=== PATIENT | male | born 1980 | race Caucasian/White ===

== ENCOUNTER 2018-02-15 07:30 | Inpatient (IN) | payer OTHER ==
[~2018-02-15] VITALS: Ht 185.4 cm; Wt 72.6 kg
[2018-03-15] MEDS ORDERED: NORCO 10-325 T1 EACH ORAL (15:37)
[2018-03-16] VITALS (16 sets, daily range): BP systolic 134–159; BP diastolic 48–103
[2018-03-16] MEDS ORDERED: LR 1000ml 1,000 ML IVLG SCH (06:06)
--- NOTE | 2018-03-16 06:08 | Anethesia Preoperative Eval ---
Anesthesia Pre-op PMH/ROS General Date of Evaluation: Mar 16, 2018 Time of Evaluation: 07:36 Anesthesiologist: José Miguel ASA Score: ASA 2 Mallampati Score Class I : Soft palate, uvula, fauces, pillars visible Class II: Soft palate, uvula, fauces visible Class III: Soft palate, base of uvula visible Class IV: Only hard plate visible Mallampati Classification: Class I Surgeon: Andreia Diagnosis: Neck Pain Surgical Procedure: ACDF C5-6 Anesthesia History: none Family History: no anesthesia problems Allergies: Coded Allergies: No Known Allergies (Unverified , 03/07/18) Medications: see eMAR Patient NPO?: Yes Past Medical History Cardiovascular: Reports: HTN Gastrointestinal/Genitourinary: Reports: GERD Neurologic/Psychiatric: Reports: depression/anxiety PSxH Narrative: L ACL, R Ankle Sx Anesthesia Pre-op Phys. Exam Physician Exam Vital Signs Date Time Temp Pulse Resp B/P (MAP) Pulse Ox O2 Delivery O2 Flow Rate FiO2 03/16/18 06:25 98.2 71 18 135/91 (106) 96 03/16/18 06:40 Room Air Constitutional: NAD Neurologic: CN 2-12 intact Cardiovascular: RRR Respiratory: CTA Gastrointestinal: S/NT/ND Airway Exam Mallampati Score: Class I MO: full ROM: limited Teeth: intact, broken Anesthesia Pre-op A/P Risk Assessment & Plan Assessment: ASA 2 Plan: GA, SED, GlideScope Go Status Change Before Surgery: No Pre-Antibiotics Dru Grams Ancef IV Given Within 1 Hr of Incision: Yes Time Given: 07:56 Carlos Felipe MD Mar 16, 2018 06:08
[2018-03-16] MEDS ORDERED: Midazolam 2mg/2ml Inj IVP PRN (06:15)
[2018-03-16] MEDS ORDERED: Meperidine 50mg/ml Inj(FOR RIGORS ONLY) IVP PRN (06:15)
[2018-03-16] MEDS ORDERED: fentaNYL 100 mcg/2 mL IV PRN (06:15)
[2018-03-16] MEDS ORDERED: Metoclopramide 10mg/2ml Inj IVP PRN (06:15)
[2018-03-16] MEDS ORDERED: Atropine Sulfate 0.4mg/ml inj IVP PRN (06:15)
[2018-03-16] MEDS ORDERED: Hydromorphone 0.5mg/0.5ml inj IVP PRN (06:15)
[2018-03-16] MEDS ORDERED: DiphenhydrAMINE 50mg/ml Inj IVP PRN (06:15)
[2018-03-16] MEDS ORDERED: Acetaminophen (Non formulary) 100 ML IV ONE (06:15)
[2018-03-16] MEDS ORDERED: Norco 5mg/325mg tab ORAL PRN ×2 (06:15→10:30)
[2018-03-16] MEDS ORDERED: oxyCODONE HCL/Acetaminophen 5/325mg ORAL PRN (06:15)
[2018-03-16] MEDS ORDERED: HYDROcodone/Acetamin 7.5/325 tab ORAL PRN ×2 (06:15→10:30)
[2018-03-16] MEDS ORDERED: Ketorolac 30mg Inj IV PRN ×2 (06:15)
[2018-03-16] MEDS ORDERED: LORazepam Inj 2mg/ml 1ml IV PRN (06:15)
[2018-03-16] MEDS ORDERED: Lidocaine 1% Plain 30 ml INJ ONE ×2 (06:32→09:20)
[2018-03-16] MEDS ORDERED: Lidocaine 1% MPF 10mg/ml 5ml ONE (06:33)
[2018-03-16] MEDS ORDERED: Dexamethasone 4mg/ml vial ONE (06:33)
[2018-03-16] MEDS ORDERED: Sodium Chloride 10ml vial INJ ONE (06:33)
[2018-03-16] MEDS ORDERED: fentaNYL 100 mcg/2 mL IV ONE ×2 (06:41→08:27)
--- NOTE | 2018-03-16 06:58 | Immediate Post-Op Evaluation ---
Immediate Post-Op Evalulation Immediate Post-Op Evalulation Procedure: ACDF C5-6 Date of Evaluation: Mar 16, 2018 Time of Evaluation: 10:39 IV Fluids: 800 LR Blood Products: 0 Estimated Blood Loss: 15 Urinary Output: 0 Blood Pressure Systolic: 159 Blood Pressure Diastolic: 97 Pulse Rate: 86 Respiratory Rate: 16 O2 Sat by Pulse Oximetry: 100 Pain Score (1-10): 2 Nausea: No Vomiting: No Complications 0 Patient Status: awake, reacts, patent, extubated, none Hydration Status: adequate Dru grams ancef IV Given Within 1 Hr of Incision: Yes Time Given: 07:56 Carlos Felipe MD Mar 16, 2018 06:58
[2018-03-16] MEDS ORDERED: ceFAZolin sod 2 GM in D5W 110 ML IVPB ONE (07:00)
[2018-03-16] MEDS ORDERED: Heparin 1000 units/ml 1ml Vial ONE (07:17)
[2018-03-16] MEDS ORDERED: Thrombin 5000 units spray kit TOPIC ONE (07:17)
[2018-03-16] MEDS ORDERED: Vancomycin 1gm inj IVPB ONE (07:17)
[2018-03-16] MEDS ORDERED: Bacitracin 50000 Units Vial ONE (07:18)
[2018-03-16] MEDS ORDERED: Bupivacaine w/Epi 0.5% 30ml Vial INJ ONE (07:18)
[2018-03-16] MEDS ORDERED: Thrombin 5000 units TOPIC ONE (07:18)
[2018-03-16] MEDS ORDERED: Gelfoam Size TOPIC ONE (07:18)
[2018-03-16] MEDS ORDERED: Propofol 1,000mg/ 100ml btl IV ONE (07:30)
[2018-03-16] MEDS ORDERED: Sterile Water Irrig 1000ml IRRIG ONE (07:30)
[2018-03-16] MEDS ORDERED: NS Irrig 1000ml ONE (07:30)
--- NOTE | 2018-03-16 07:35 | Pre-Procedure Note/Attestation ---
Pre-Procedure Note/Attestation Complete Prior to Procedure Procedure Narrative: acdf c56 with bone marrow aspiration iliac Indications for Procedure Pre-Operative Diagnosis: cervical radiculopathy Attestation I attest that I discussed the nature of the procedure; its benefits; risks and complications; and alternatives (and the risks and benefits of such alternatives ), prior to the procedure, with the patient (or the patient's legal b2b sales representative). I attest that, if there was a reasonable possibility of needing a blood transfusion, the patient (or the patient's legal b2b sales representative) was given the [facility] standardized written summary, pursuant to the Félix Maritza Blood Safety Act ([place] Health and Safety Code # 1645, as amended). I attest that I re-evaluated the patient just prior to the surgery and that there has been no change in the patient's H&P, except as documented below: Eliel Boswell MD Mar 16, 2018 07:35
[2018-03-16] MEDS ORDERED: Glycopyrrolate 0.2mg/ml 1ml Vial ONE (09:53)
[2018-03-16] MEDS ORDERED: Naloxone 0.4mg/ml Inj ONE (10:01)
[2018-03-16] MEDS ORDERED: Naloxone 0.4mg/ml Inj IVP PRN (10:30)
[2018-03-16] MEDS ORDERED: HYDROmorphone 1mg/ml Carpuject IVP PRN (10:30)
[2018-03-16] MEDS ORDERED: HYDROmorphone 1mg/ml Carpuject SUBQ PRN (10:30)
--- NOTE | 2018-03-16 10:41 | Brief Operative Note ---
Immediate Post Operative Note Operative Note Pre-op Diagnosis: cervical radiculopathy Procedure: acdf c56 with bmac Post-op Diagnosis: same as pre-op Findings: consistent w/pre-op dx studies Surgeon: Andreia Dry End Tester: Estrella Anesthesiologist: Teodoro Anesthesia: general Specimen: yes Complications: none Condition: stable Fluids: 1000cc Estimated Blood Loss: minimal - 15cc Drains: none Implant(s) used?: Yes Eliel Boswell MD Mar 16, 2018 10:41
--- NOTE | 2018-03-16 10:59 | Diagnostic Imaging Report ---
INDICATION: Pain, intraoperative TECHNIQUE: Intraoperative imaging Fluoroscopy time: 9.2 seconds Total dose: 0.45 mGy Total number of images: 3 COMPARISON: None FINDINGS: Intraoperative images demonstrate surgical tool projected anterior to the C5-6 disc. Subsequent images document placement of anterior fusion hardware and a disc spacer at C5-6. This appears well aligned. IMPRESSION: Intraoperative imaging, as described
[2018-03-16] MEDS: D5 1/2NS 1,000 ML IV SCH ×2 (13:47→23:12)
[2018-03-16] MEDS ORDERED: ceFAZolin sod 1 GM in D5W 55 ML IV SCH (14:00)
[2018-03-16] MEDS: ceFAZolin sod 1 GM in D5W 55 ML IV SCH ×2 (16:22→23:06)
--- NOTE | 2018-03-16 18:47 | 48 Hour Post Anesthesia Eval ---
Post Anesthesia Evaluation Procedure: ACDF C5-6 Date of Evaluation: Mar 16, 2018 Time of Evaluation: 18:46 Blood Pressure Systolic: 134 0: 93 Pulse Rate: 98 Respiratory Rate: 19 Temperature (Fahrenheit): 98.1 O2 Sat by Pulse Oximetry: 98 Airway: patent Nausea: No Vomiting: No Pain Intensity: 3 Hydration Status: adequate Cardiopulmonary Status: Stable Follow-up Care/Observations: 0 Post-Anesthesia Complications: 0 Follow-up care needed: ready to discharge Carlos Felipe MD Mar 16, 2018 18:47
[2018-03-16] MEDS: HYDROcodone/Acetamin 7.5/325 tab ORAL PRN (18:55)
[2018-03-17] VITALS: BP 138/93
[2018-03-17 04:00] VITALS: BP 128/81
[2018-03-17] MEDS: ceFAZolin sod 1 GM in D5W 55 ML IV SCH (07:58)
[2018-03-17] MEDS: HYDROcodone/Acetamin 7.5/325 tab ORAL PRN ×4 (07:58→21:01)
[2018-03-17] MEDS: D5 1/2NS 1,000 ML IV SCH ×2 (07:58→17:05)
[2018-03-17 08:00] VITALS: BP 139/85
[2018-03-17 12:00] VITALS: BP 131/80
[2018-03-17 16:00] VITALS: BP 140/89
--- NOTE | 2018-03-17 18:10 | General Progress Note ---
Subjective Allergies: Coded Allergies: No Known Allergies (Unverified , 03/07/18) Subjective min neck pain and no arm pain avss a and o times [address] dressing cdi 5/5 motor in the ue and the le calves soft and nt cr less than 2 seconds doing well post op oob pt c collar dc tomorrow follow up in 7 to 10 days Objective Last 24 Hour Vital Signs Date Time Temp Pulse Resp B/P (MAP) Pulse Ox O2 Delivery O2 Flow Rate FiO2 03/17/18 16:00 98.4 71 18 140/89 (106) 94 03/17/18 12:00 98.3 77 18 131/80 (97) 95 03/17/18 09:00 Room Air Room Air 03/17/18 08:00 97.5 80 18 139/85 (103) 94 03/17/18 04:00 98.4 73 18 128/81 (97) 94 03/17/18 00:00 98.4 98 17 138/93 (108) 98 03/16/18 21:00 Room Air Room Air 03/16/18 20:00 97.8 82 19 140/85 (103) 98 03/16/18 18:47 98 19 98 Intake and Output 03/16/18 03/17/18 18:59 06:59 Intake Total 1455 ml 1200 ml Output Total 815 ml Balance 640 ml 1200 ml IV Total 1455 ml 1200 ml Output Urine Total 800 ml Estimated Blood Loss 15 ml # Voids 2 Height (Feet): 6 Height (Inches): 1.00 Weight (Pounds): 160 Eliel Boswell MD Mar 17, 2018 18:10
[2018-03-17] MEDS: Docusate 100mg cap ORAL SCH (18:11)
[2018-03-17 20:00] VITALS: BP 133/93
--- NOTE | 2018-03-17 21:45 | Operative Note - Dictated ---
DATE OF OPERATION: 03/16/2018 PREOPERATIVE DIAGNOSIS: C5-C6 disk protrusion with left upper extremity radiculopathy and stenosis. POSTOPERATIVE DIAGNOSIS: C5-C6 disk protrusion with left upper extremity radiculopathy and stenosis. PROCEDURE PERFORMED: 1. Interbody fusion with decompression at C5-C6. 2. Anterior instrumentation at C5-C6. 3. Insertion of biomechanical device at C5-C6. 4. Use of allograft and local autograft for fusion. 5. Right iliac bone marrow aspiration. SURGEON: Eliel Boswell M.D. RETAIL SALES MERCHANDISER: Adam De La Rosa M.D. ANESTHESIA: General endotracheal anesthesia disk C5-C6. ANESTHESIOLOGIST: Carlos Felipe M.D. ESTIMATED BLOOD LOSS: 15 mL. COMPLICATIONS: None. IV ANTIBIOTICS: 2 g of Ancef. FLUIDS: 1000 mL of crystalloid. INDICATIONS: This is a pleasant gentleman who failed nonoperative treatment and options for above treatment was given. Risks, alternatives, and benefits were discussed with the patient. Risks include, but are not limited to, anesthesia complications including , medical complications including liver, kidney, cardiopulmonary deficits, bleeding, infection, neurovascular injury, dysphonia, dysphagia, hematoma of the neck, nerve root injury, paralysis, spinal cord injury, CSF leak, dural tear, fracture of the hardware, loosening of the hardware, need for revision, decompression and fusion, swallowing difficulties, esophageal injury, tracheal injury, recurrent laryngeal nerve injury as well as other complications. The patient understood and wished to proceed. All the patient's questions were answered. Written and verbal consent was given. No guarantees were given. OPERATIVE FINDINGS: Herniated nucleus pulposus at C5-C6 with abutment of the spinal cord and left-sided disk protrusion, intraforaminal with osteophyte causing impingement of the exiting left C6 nerve root. DESCRIPTION OF OPERATION: The patient was brought into the operating room supine on a stretcher. Appropriate IV lines were placed by the anesthesiologist. A 2 g of Ancef was administered. The patient was induced and intubated without complication, was positioned onto the operating room table. The neck was placed into neutral alignment. The arms were tucked by the side. All bony prominences were well padded as well as the four extremities. SSEP, neuromonitoring leads were placed and baseline recordings were done by the Neurophysiology emergency medical technician. SSEP, EMG, and dermatomal EMG remained stable throughout the case. Preoperative fluoroscopy revealed the planned incision to be over the C5-C6 interbody space. Fluoroscopy revealed the neck to be in adequate alignment. The neck was prepped and draped in the usual sterile fashion and a proximal incision was made over C5-C6. Hemostasis was achieved with bipolar cautery. The platysma was incised in line with the skin incision. Blunt dissection was carried out in the interval between the strap muscles and the sternocleidomastoid. Superficial cervical fascia was dissected caudally as well as cephalad. The carotid pulse was palpated and found to be well lateral to the field of dissection. Deep cervical fascia was encountered. Once the cervical fascia was found, blunt dissection was carried out with Kittners as well as finger dissection to find the prevertebral space. The longus colli was found on both sides of the spine and was dissected appropriately. Retractors were set in place. Spinal needle was used to identify the disk space and lateral fluoroscopy revealed the C5-C6 disk space correctly. Retractors were set into place. The surgery was done with the intraoperatively sterilely draped microscope from skin incision to skin closure to include microdissection of the neural elements. At this point, attention was diverted to doing the diskectomy with a scalpel as well as pituitary rongeurs, straight and curved curettes and #1, #2, and #3 Kerrison punches, a radical diskectomy at C5-C6 was accomplished. Endplate bone was preserved. Endplate cartilage was removed. The uncovertebrectomy was done on the left and the right side to the level of the posterior longitudinal ligament. There was a large disk herniation, central and left paracentral with spinal cord abutment and significant compression of the exiting left C6 nerve root with osteophyte. A Microsect #2 curette was used to remove the PLL and all disk herniation and revealed a complete decompression of the spinal canal, central spinal canal, lateral recess, and the foramina was assured. At this point, attention was diverted to investigate any further disk space. There was no other disk fragment. A Valsalva was done at 40 mmHg. There was no CSF leak. All sponge, needle, and instrument counts were correct at this point, and now attention was diverted for the interbody biomechanical device. Before the incision in the neck, the right hip was also prepped and draped in usual sterile fashion including with the neck, a Jamshidi previously was placed into the iliac bone and a 30 mL of bone marrow was aspirated in three different locations from the iliac bone and was sent off for concentration for stem cells. This material was sterilely saved and at this point, it was ready for implantation into the interbody biomechanical device. Different trials from the Fingerprint system were used and a 16.5 x 14 mm 7-degree lordotic, 7 mm in height Titanium biomechanical device was chosen, was packed with local autograft, which was saved from shavings from C5 and C6, the [place] allograft and bone marrow aspirate concentrate and placed into the biomechanical device. The biomechanical device was tamped into place at C5-C6 with excellent recreation of height, indirect decompression, and apposition against the endplates without any subsidence. A [place] plate 12 mm in size was bent in a lordotic fashion, and with 16 mm self-drilling screws were placed into the C5 vertebral body, 14 mm self-drilling screws were placed in the C6 vertebral body with excellent fixation of each screw when the screw below the locking mechanism of the [place] plate appropriately. Now, attention was diverted to closure. AP and lateral fluoroscopy revealed all instrumentation to be in excellent position. All sponge, needle, and instrument counts were correct. There was no bleeding, and therefore, a drain was not placed. At this point, attention was diverted to closure of the platysma and was closed with 3-0 Vicryl sutures in a watertight interrupted fashion. The subdermal and subcuticular layers were closed with 4-0 Monocryl, Dermabond was placed. Sterile dressing tape was placed. C-collar was placed. The patient was extubated in stable condition, was taken to the recovery room in stable condition, was found to be neurovascularly intact and was admitted to the hospital for observation. Eliel Boswell M.D. DR: JASON JOB#: [id number] CC:
[2018-03-17] MEDS ORDERED: Tubing IV Secondary IV ONE (22:13)
[2018-03-17] MEDS ORDERED: D5 1/2NS 1000ml IV ONE (22:13)
[2018-03-18] VITALS: BP 144/98
[2018-03-18] MEDS: HYDROcodone/Acetamin 7.5/325 tab ORAL PRN (01:12)
[2018-03-18 04:00] VITALS: BP 147/100
[2018-03-18 08:00] VITALS: BP 145/92
[2018-03-18] MEDS: Docusate 100mg cap ORAL SCH (08:14)
[2018-03-18] MEDS ORDERED: Chloraseptic Spray 20mL Bottle ORAL PRN (09:45)
[2018-03-18 12:00] VITALS: BP 139/90
--- NOTE | 2018-03-21 15:19 | Discharge Summary ---
Discharge Summary Hospital Course Date of Admission Mar 16, 2018 at 05:51 Date of Discharge Mar 18, 2018 at 13:10 Admitting Diagnosis CERVICAL RADICULOPATHY Reason for Hospitalization: elective surgery ARNOL Looney is a 37 year old male who was admitted on Mar 16, 2018 at 05: 51 for cervical radiculopathy. Patient was admitted for elective surgery. Procedures s/p 03/[address] 1. Interbody fusion with decompression at C5-C6. 2. Anterior instrumentation at C5-C6. 3. Insertion of biomechanical device at C5-C6. 4. Use of allograft and local autograft for fusion. 5. Right iliac bone marrow aspiration. Hospital Course status post surgery course of recovery uneventful initially IV fluids s/p perioperative antibiotics neurovascular status closely monitored, stable incision clean dry and intact cervical collar on, ice pack as needed pain management addressed , and pain controlled hemodynamically stable ambulated with PT fall precautions maintained; safe for ambulation tolerated liquid diet , Chloraseptic spray as needed for comfort IV fluids discontinued advance diet to soft at home as tolerated , for the first few days , then regular diet GI prophylaxis provided antiemetics were on board as needed voided freely bowel regimen instituted patient was stable for discharge discharge instructions provided follow up with surgeon as advised by surgeon FINAL DIAGNOSES C5-C6 disk protrusion with left upper extremity radiculopathy and stenosis s/p ACDF C5-6 with right iliac bone marrow aspiration Discharge Condition Upon Discharge: stable Discharge Disposition Patient was discharged to Home (01) Discharge Instructions Discharge Instructions Special Instructions I have been assigned to complete a D/C Summary on this account. I was not involved in the patient management Pauline Murray NP Mar 21, 2018 15:19
== END 2018-03-18 13:10 | disposition home or self-care (01) | DRG 473 ==
LOC: SDSOVERFLO 03-16 05:51 → 3E 03-16 12:11
PROC: 07DR3ZZ Extraction of Iliac Bone Marrow, Percutaneous Approach (ICD-10-PCS; principal; 2018-03-16 07:30)
PROC: 0RG10A0 Fusion of Cervical Vertebral Joint with Interbody Fusion Device, Anterior Approach, Anterior Column, Open Approach (ICD-10-PCS; principal; 2018-03-16 07:30)
PROC: 0RB30ZZ Excision of Cervical Vertebral Disc, Open Approach (ICD-10-PCS; principal; 2018-03-16 07:30)
DX: M50.122 Cervical disc disorder at C5-C6 level with radiculopathy (principal); F32.9 Major depressive disorder, single episode, unspecified; F41.9 Anxiety disorder, unspecified; V89.2XXS Person injured in unspecified motor-vehicle accident, traffic, sequela
CPT/HCPCS: 36415; 72040; 76001; 84132; 86850; 86900; 86901; 87081; 94003; 94150; J2405